=== PATIENT | male | born 1950 | race Caucasian/White ===

== ENCOUNTER 2019-10-13 22:38 | Inpatient (IN) | payer MEDICARE ==
[~2019-10-13] VITALS: Ht 180.3 cm; Wt 65.8 kg
--- NOTE | 2019-10-13 22:38 | NUR ---
PT MAKENNA FROM [facility] O2 DESAT [facility], BECAME BRADYCARDIC EN ROUTE, UPON ARRIVAL PT ON FULL ARREST, CPR INITIATED, MD, RT AND RN AT BEDSIDE.
--- NOTE | 2019-10-13 22:42 | NUR ---
EPI 1:1000 GIVEN PER . CPR RESUMED
--- NOTE | 2019-10-13 22:44 | NUR ---
PULSE CHECKED, PEA, 2ND EPI 1:100 GIVEN, CPR RESUMED.
--- NOTE | 2019-10-13 22:46 | NUR ---
PULSE CHECKED, PEA, EPI 1:1000 GIVEN PER . CPR RESUMED
--- NOTE | 2019-10-13 22:48 | NUR ---
PULSE CHECKED, PEA EPI 1:1000 GIVEN PER . CPR RESUMED
--- NOTE | 2019-10-13 22:50 | NUR ---
INTUBATED THE PT, SIZE 7.5MMM, 24 AT THE LIP, POSITIVE COLOR CHANGED, HOOKED TO MECH VENT.
--- NOTE | 2019-10-13 22:52 | NUR ---
ENDED CODE, ROSC OBTAINED.
[2019-10-13] MEDS ORDERED: NOREPINEPHRINE 4 MG/4 ML AMPUL IV ONE (23:05)
--- NOTE | 2019-10-13 23:15 | NUR ---
CENTRAL LINE INSERTED BY .
--- NOTE | 2019-10-13 23:24 | NUR ---
RT pt brought in via ems for respiratory distress. code blue initiated immediately upon arrival due to decreased aloc. pt intubated 7.5 tube @ 24 lip @2250. placed immediately on vent. settings AC 18 500 100%. abg performed on pt. vt and rr increased, rr increased to 24 and vt increased to 550. pt tolerating current vent settings. will continue to monitor. repeat abg in 1 hr.
--- NOTE | 2019-10-13 23:30 | NUR ---
levophed titrated to 1mcg/kg/min. see b/p on notes.
--- NOTE | 2019-10-13 23:35 | NUR ---
URINE SPECIMEN COLLECTED AND SENT TO LAB.
[2019-10-13] MEDS ORDERED: ZINC50TA69 PO (23:39)
[2019-10-13] MEDS ORDERED: FOLI1CAP7 PO (23:39)
[2019-10-13] MEDS ORDERED: LEVE500T20 PO (23:39)
[2019-10-13] MEDS ORDERED: LEVO50TA8 PO (23:39)
[2019-10-13] MEDS ORDERED: THIA100V2 PO (23:39)
[2019-10-13] MEDS ORDERED: MIRT15TA PO (23:39)
[2019-10-13] MEDS ORDERED: DOCU100T2 PO (23:39)
[2019-10-13] MEDS ORDERED: AMIN30LI2 PO (23:39)
[2019-10-13] MEDS ORDERED: MULT1TAB73 PO (23:39)
[2019-10-13] MEDS ORDERED: MELA3TAB41 PO (23:39)
[2019-10-13] MEDS ORDERED: POLY17PO4 PO (23:39)
[2019-10-13] MEDS ORDERED: DEXA4TAB PO (23:39)
[2019-10-13] MEDS ORDERED: PIPERACILLIN /TAZOBACTAM 3.375 G VIAL IV ONE (23:46)
[2019-10-13] MEDS ORDERED: VANCOMYCIN 1 GM VIAL ONE (23:46)
[2019-10-13 23:49] LABS: APPEARANCE,URINE Cloudy (CLEAR); BILIRUBIN,URINE Negative (NEGATIVE); BLOOD, URINE Large Ery/uL (NEGATIVE); COLOR,URINE Yellow (YELLOW); KETONES,URINE Negative (NEGATIVE); LEUKOCYTE ESTERASE ,URINE Large (NEGATIVE); NITRITE, URINE Positive (NEGATIVE); PH,URINE 6.5 (5.0-8.0); PROTEIN,URINE >=300 mg/dl (NEGATIVE); UGLUCOSE 100 MG/DL mg/dL (NEGATIVE); UROBILINOGEN,URINE 0.2 EU/dL (0.2)
[2019-10-13] MEDS ORDERED: DOPamine 400MG/D5W 250ML RTU 250 ML IV ONE (23:59)
[2019-10-14] MEDS ORDERED: NOREPINEPHRINE 8 MG in IV NS 0.9% 250 ML IV ONE ×2
[2019-10-14] MEDS ORDERED: PIPERACILLIN /TAZOBACTAM 3.375 G in IV D5W 50 ML IV ONE ×2
[2019-10-14] MEDS ORDERED: VANCOMYCIN 1 GM in IV D5W 250 ML IV ONE ×2
[2019-10-14] MEDS ORDERED: DOPamine 400 MG in IV D5W 250 ML IV ONE ×2
[2019-10-14] MEDS ORDERED: IV NS 0.9% 500 ML BAG IV ONE
--- NOTE | 2019-10-14 00:19 | NUR ---
pt started on dopamine drip titrated to effect
[2019-10-14 00:20] LABS: BASOPHILS # (AUTO) 0.1 /CMM (0.0-0.2); BASOPHILS % (AUTO) 0.4 % (0.0-2.0); EOSINOPHILS % (AUTO) 0.5 % (0.0-6.0); HEMATOCRIT 40 % (39-51); HEMOGLOBIN 11.2 g/dL (13.5-17.5); LYMPHOCYTES # (AUTO) 4.7 /CMM (0.8-4.8); LYMPHOCYTES % (AUTO) 17.4 % (20.0-44.0); MEAN CORPUSCULAR HGB CONC 28 g/dl (31.0-36.0); MEAN CORPUSCULAR VOLUME 95 fL (80-96); MONOCYTES # (AUTO) 0.7 /CMM (0.1-1.30); MONOCYTES % (AUTO) 2.4 % (2.0-12.0); NEUTROPHILS # (AUTO) 21.5 /CMM (1.8-8.9); NEUTROPHILS % (AUTO) 79.3 % (43.0-81.0); PLATELET COUNT (AUTO) 278 /CMM (150-450); RED BLOOD CELL COUNT(AUTO) 4.21 MIL/uL (4.5-6.0); WHITE BLOOD COUNT (AUTO) 27.1 K/uL (4.3-11.0)
[2019-10-14 00:27] LABS: ALANINE AMINOTRANSFERASE 49 U/L (12-78); ALBUMIN 2.3 g/dL (3.4-5.0); ALKALINE PHOSPHATASE 152 U/L (46-116); ASPARTATE AMINOTRANSFERASE 34 U/L (15-37); B-TYPE NATRIURETIC PEPTIDE 2253 PG/ML (0-125); BILIRUBIN,DIRECT 0.2 mg/dL (0.0-0.2); BILIRUBIN,TOTAL 0.4 mg/dL (0.2-1.0); CALCIUM, SERUM 7.8 mg/dL (8.5-10.1); CARBON DIOXIDE 18 mmol/L (21-32); CHLORIDE 119 mmol/L (98-107); CREATININE 2.3 mg/dL (0.6-1.3); POTASSIUM 4.1 mmol/L (3.5-5.1); TOTAL PROTEIN, SERUM 6.3 g/dL (6.4-8.2); UREA NITROGEN, BLOOD 19 mg/dL (7-18)
[2019-10-14 00:28] LABS: GLUCOSE 359 mg/dL (74-106); SODIUM SERUM 156 mmol/L (136-145)
[2019-10-14 00:30] LABS: BACTERIA,URINE Moderate /HPF (None Seen); MUCUS,URINE Few /LPF (None Seen); RBC,URINE 21-50 /HPF (0-2); SQUAMOUS EPITHELIAL CELL,UR Few /HPF (None Seen); WBC,URINE 81-100 /HPF (0-3)
[2019-10-14 00:37] LABS: CREATINE KINASE, TOTAL 114 U/L (39-308)
[2019-10-14 00:42] LABS: C-REACTIVE PROTEIN 3.4 mg/dL (0.0-0.9)
[2019-10-14 00:51] LABS: BAND % (MANUAL) 9 % (0.0-5.0); LYMPHOCYTES % (MANUAL) 17 % (16-48); MONOCYTES % (MANUAL) 3 % (0-11.0); NEUTROPHILS % (MANUAL) 71 (42-76)
[2019-10-14] MEDS ORDERED: IV 1/2NS 1000 ML 1,000 ML IV PRN (01:01)
[2019-10-14 01:27] LABS: ABG BASE EXCESS -23.2 mmol/L; ABG OXYGEN SATURATION 99.1 % (92.0-98.5); ABG PCO2 31.5 mmHg (35.0-45.0); ABG PH 6.985 (7.350-7.450); ABG PO2 470.3 mmHg (75.0-100.0); AaDO2 211.2 mmHg; COHb 0.3 % (0.5-1.5); MetHb 0.7 % (0.0-1.5); O2Hb 98.1 % (94.0-97.0); SITE, ABG Right Brachial; VENT MODE, BG AC 24 550 100%
[2019-10-14] MEDS ORDERED: ONDANSETRON HCL/PF 4 MG/2 ML VIAL IVP PRN (01:30)
[2019-10-14] MEDS ORDERED: INSULIN REGULAR, HUMAN 100 UNIT/ML 3 ML VIAL SQ PRN (01:30)
[2019-10-14] MEDS ORDERED: DEXTROSE 50%-WATER 50 ML DISP.SYRIN IV PRN ×2 (01:30)
[2019-10-14] MEDS ORDERED: NOREPINEPHRINE 4 MG/4 ML AMPUL IV ONE ×2 (01:30→05:01)
[2019-10-14] MEDS ORDERED: NOREPINEPHRINE 8 MG in IV NS 0.9% 242 ML IV PRN (01:30)
[2019-10-14] MEDS ORDERED: PROPOFOL 100 ML IV PRN (01:30)
[2019-10-14] MEDS ORDERED: PHENYLEPHRINE 100 MG in IV NS 0.9% 240 ML IV PRN ×4 (01:30)
[2019-10-14] MEDS ORDERED: IV NS 0.9% 1,000 ML IV PRN (01:30)
[2019-10-14] MEDS ORDERED: Z GUARD REMEDY 2 OZ OINT TP PRN (01:30)
[2019-10-14] MEDS ORDERED: ACETAMINOPHEN 325 MG TABLET PO PRN (01:30)
[2019-10-14 01:49] LABS: D-DIMER > 35.20 mg/L(FEU (0.17-0.50)
[2019-10-14] MEDS ORDERED: PHENYLEPHRINE 10 MG/ML VIAL ONE (01:56)
[2019-10-14] MEDS ORDERED: MEROPENEM 500 MG in IV NS 0.9% 50 ML IV ONE (02:00)
--- NOTE | 2019-10-14 02:01 | NUR ---
report given to chasity rn, pt transported to icu
[2019-10-14 02:21] LABS: FERRITIN 1399 ng/mL (8-388)
[2019-10-14] MEDS ORDERED: MEROPENEM 500 MG VIAL IV ONE (02:26)
[2019-10-14 02:30] VITALS: BP 80/64
[2019-10-14 03:00] VITALS: BP 60/40
[2019-10-14] MEDS: NOREPINEPHRINE 8 MG in IV NS 0.9% 242 ML IV PRN ×3 (03:04→07:27)
--- NOTE | 2019-10-14 03:47 | NUR ---
JINGLE WRITER. RECEIVED THE PT FROM ER VIA RNEY. S/P CARDIAC ARREST UPON ARRIVAL. INTUBATED FROM ER. PT IS UNRESPONSIVE. BOTH PUPILS ARE FIXED, NO REACTING. IV RT IJ TRIPLE LUMEN AARON 3MCG/KG/MIN, LEVOPHED 1MCG/KG/MIN,1/2NS 100ML/H. FC PATENT URINE OUT PUT IS . PURULENT. SACRAL DTI. RT LATERAL KNEE INFECTED WOUND. SVETLANA HEEL DISCOLORATION. PT IS CRITICAL; NO BLOOD PRESSURE 2 PRESSERS MAX OUT. WILL CONTINUE TO MONITOR/
--- NOTE | 2019-10-14 03:53 | NUR ---
INTERPRETIVE PROGRAM COORDINATOR. RECEIVED THE PT FROM ER HEART RATE WAS 144. DOPAMIN STARTED FROM ER MD. IN ICU DISCONTINUED DOPAMINE.
--- NOTE | 2019-10-14 03:55 | NUR ---
NO BLOOD PRESSURE, HEART RATE WENT DOWN 60. PT STATUS NOTIFIED BROTHER LISA . HE CHANGED CODE STATUS. PT IS NOW ON DNR. NOTIFIED BURNER TECHNICIAN MATTHEW
[2019-10-14 04:00] VITALS: BP_SYST 90; BP_SYST 99; BP_DIAS 58; BP_DIAS 73
[2019-10-14 04:36] LABS: BASOPHILS # (AUTO) 0.1 /CMM (0.0-0.2); BASOPHILS % (AUTO) 0.2 % (0.0-2.0); EOSINOPHILS % (AUTO) 0.1 % (0.0-6.0); HEMATOCRIT 39 % (39-51); HEMOGLOBIN 11.1 g/dL (13.5-17.5); LYMPHOCYTES # (AUTO) 2.4 /CMM (0.8-4.8); LYMPHOCYTES % (AUTO) 8.6 % (20.0-44.0); MEAN CORPUSCULAR HGB CONC 28 g/dl (31.0-36.0); MEAN CORPUSCULAR VOLUME 95 fL (80-96); MONOCYTES # (AUTO) 0.6 /CMM (0.1-1.30); NEUTROPHILS # (AUTO) 24.9 /CMM (1.8-8.9); NEUTROPHILS % (AUTO) 89.1 % (43.0-81.0); PLATELET COUNT (AUTO) 272 /CMM (150-450); RED BLOOD CELL COUNT(AUTO) 4.13 MIL/uL (4.5-6.0)
--- NOTE | 2019-10-14 04:53 | NUR ---
RIVET SPINNER. ORAL CARE. BED BATH GIVEN. PT IS UNSTABLE. REMAINING SAME VENT SETTING ON. SAT 95%. SENIOR SOFTWARE DEVELOPMENT ENGINEER SHOWING S TACH. AARON 3MCG/KG/MIN,LEVOPHED 1MCG/KG/MIN, IVF 1/2NS 100ML/HFC PATENT. WILL CONTINUE TO MONITOR VITALS, PUPIL FIXED. NO GAG REFLEX. WILL CONTINUE TO MONITOR
[2019-10-14 05:02] VITALS: BP 133/81
[2019-10-14 05:02] LABS: CALCIUM, SERUM 6.6 mg/dL (8.5-10.1); CARBON DIOXIDE 13 mmol/L (21-32); CHLORIDE 117 mmol/L (98-107); CREATININE 2.6 mg/dL (0.6-1.3); GLUCOSE 295 mg/dL (74-106); MAGNESIUM 1.7 mg/dL (1.8-2.4); POTASSIUM 3.8 mmol/L (3.5-5.1); SODIUM SERUM 153 mmol/L (136-145); UREA NITROGEN, BLOOD 23 mg/dL (7-18)
[2019-10-14 05:03] LABS: PHOSPHORUS 9.1 mg/dL (2.5-4.9)
[2019-10-14 06:00] VITALS: BP 60/45
[2019-10-14] MEDS ORDERED: BLOOD SUGAR DIAGNOSTIC 1 EACH STRIP IN SCH ×2 (06:00)
[2019-10-14] MEDS ORDERED: FEE PK DOSING 1 MIN EA MC ONE (06:31)
[2019-10-14] MEDS ORDERED: IV 1/2NS 1000 ML 1,000 ML IV SCH (06:32)
[2019-10-14] MEDS ORDERED: LEVOTHYROXINE SODIUM 50 MCG TABLET PO SCH (07:00)
[2019-10-14] MEDS ORDERED: PANTOPRAZOLE 40 MG VIAL IV SCH (09:00)
[2019-10-14] MEDS ORDERED: LEVETIRACETAM SOL (5 ML) 100 MG/ML UDC GT SCH (09:00)
[2019-10-14] MEDS ORDERED: HYDROCORTISONE SOD SUCCINATE 100 MG/2 ML VIAL IV SCH (09:00)
[2019-10-14] MEDS ORDERED: MISCELLANEOUS MED 1 EA EA XX ONE (09:00)
[2019-10-14] MEDS ORDERED: VASOPRESSIN INJ 20 UNIT in IV NS 0.9% 39 ML IV PRN (09:30)
--- NOTE | 2019-10-14 09:30 | NUR ---
brother silvia notified of , dr. wei aware of , miguel supervisor metalizing aware. no patient belongings. patient bagged, toe + bag ID tags, lines removed, called [facility] patient is not a candidate case#[id number]
--- NOTE | 2019-10-14 09:30 | NUR ---
RN NOTE PT DNR STATUS. PT FOUND APNEIC, ASYSTOLIC, AREFLEXIVE. PRONOUNCED AT 0930. FAMILY TO BE NOTIFIED BY PHONE.
[2019-10-14] MEDS ORDERED: MEROPENEM 500 MG in IV NS 0.9% 50 ML IV SCH (11:00)
[2019-10-14] MEDS ORDERED: EPINEPHRINE (1:10,000) SYRINGE 1 MG/10 ML DISP.SYRIN IVP ONE (11:13)
[2019-10-15] MEDS ORDERED: VANCOMYCIN 1 GM in IV D5W 250 ML IV SCH ×2
== END 2019-10-14 11:14 | disposition expired | DRG 871 ==
LOC: ER 22:38 → ICU 10-14 00:39
PROVIDERS: ADMIT Nurse Practitioner Acute Care; ATTEND Student in an Organized Health Care Education/Training Program
PROC: 0BH18EZ Insertion of Endotracheal Airway into Trachea, Via Natural or Artificial Opening Endoscopic (ICD-10-PCS; principal; 2019-10-14)
PROC: 5A1935Z Respiratory Ventilation, Less than 24 Consecutive Hours (ICD-10-PCS; 2019-10-14)
PROC: 02HV33Z Insertion of Infusion Device into Superior Vena Cava, Percutaneous Approach (ICD-10-PCS; 2019-10-14)
PROC: B548ZZA Ultrasonography of Superior Vena Cava, Guidance (ICD-10-PCS; 2019-10-14)
DX: A41.9 Sepsis, unspecified organism (principal); J96.01 Acute respiratory failure with hypoxia; J15.6 Pneumonia due to other Gram-negative bacteria; I21.A1 Myocardial infarction type 2; E46 Unspecified protein-calorie malnutrition; E87.0 Hyperosmolality and hypernatremia; E87.2 Acidosis; M48.54XA Collapsed vertebra, not elsewhere classified, thoracic region, initial encounter for fracture; N17.9 Acute kidney failure, unspecified; N39.0 Urinary tract infection, site not specified; E03.9 Hypothyroidism, unspecified; E78.5 Hyperlipidemia, unspecified; G40.909 Epilepsy, unspecified, not intractable, without status epilepticus; I12.9 Hypertensive chronic kidney disease with stage 1 through stage 4 chronic kidney disease, or unspecified chronic kidney disease; I46.8 Cardiac arrest due to other underlying condition; N18.9 Chronic kidney disease, unspecified; Z85.841 Personal history of malignant neoplasm of brain; Z66 Do not resuscitate; R73.9 Hyperglycemia, unspecified; R74.0 Nonspecific elevation of levels of transaminase and lactic acid dehydrogenase [LDH]
CPT/HCPCS: 31720; 36415; 36600; 71045-TC; 80048-TC; 80076-TC; 81000-TC; 82550-TC; 82728-TC; 82803-TC; 82962-TC; 83605-TC; 83615-TC; 83735-TC; 83880; 84100-TC; 84484-TC; 85025-TC; 85378-TC; 85730-TC; 86140-TC; 87040-TC; 87081-TC; 87086-TC; 87186-TC; 92950-TC; 94002-TC; 94003-TC; 99082-TC; A4216; C1751; C9113; G0378; J0171; J1265; J1815; J1953; J2185; J2370; J2543; J3370; J3490; J7030; J7050; J7060